=== PATIENT | female | born 1995 | race Asian ===

== ENCOUNTER 2018-03-22 01:04 | Inpatient (IN) | payer BC ==
[2018-03-22] MEDS: NS 0.9% 1000 ML* 2,000 ML IV ONE ×2 (01:20→04:05)
[2018-03-22] MEDS ORDERED: Pantoprazole IV* 40 MG IV ONE (01:45)
--- NOTE | 2018-03-22 01:54 | ED ---
Substance Abuse/Use - HPI Summary HPI Summary: Pt is a 23 year old F presenting to the ED brought in by EMS intoxicated. Pt was found outside vomiting, barely responsive, and breathing very slowly. Pt intubated to expand airway. Full hx and PE is limited due to intoxication. - History Of Current Complaint Chief Complaint: EDSubstanceAbuse Stated Complaint: ETOH UNRESPONSIVE Time Seen by Provider: 03/22/18 01:15 Hx Obtained From: Patient Hx From Patient Unobtainable Due To: Other - intoxication Onset/Duration of Drug/ETOH Abuse: Hours Overdose Characteristics: Oral Timing Of Abuse: Binge Use Severity Initially: Moderate Severity Currently: Moderate Character: Other - asleep Aggravating Factor(s): Nothing Alleviating Factor(s): Nothing Associated Signs And Symptoms: Vomiting, Other: - slow breathing PMH/Surg Hx/FS Hx/Imm Hx Previously Healthy: Yes - unconfirmed due to intoxication Infectious Disease History: Unable to Obtain/Confirm Infectious Disease History: Denies: Traveled Outside the [place] in Last 30 Days - Unknown - Family History Known Family History: Positive: Unknown - cannot confirm due to intoxication Review of Systems Negative: Fever Positive: Shortness Of Breath Positive: Vomiting All Other Systems Reviewed And Are Negative: Yes Physical Exam - Summary Physical Exam Summary: POST-INTUBATION VITAL SIGNS: Reviewed. GENERAL: Patient is a well-developed and nourished female who is lying comfortable in the stretcher. Patient is not in any acute respiratory distress. HEAD AND FACE: No signs of trauma. No ecchymosis, hematomas or skull depressions. No sinus tenderness. EYES: PERRLA, EOMI x 2, No injected conjunctiva, no nystagmus. EARS: Hearing grossly intact. Ear canals and tympanic membranes are within normal limits. MOUTH: Oropharynx within normal limits. NECK: Supple, trachea is midline, no adenopathy, no JVD, no carotid bruit, no c- spine tenderness, neck with full ROM. CHEST: Symmetric, no tenderness at palpation LUNGS: Clear to auscultation bilaterally post-intubation. No wheezing or crackles. CVS: Regular rate and rhythm, S1 and S2 present, no murmurs or gallops appreciated. ABDOMEN: Soft, non-tender. No signs of distention. No rebound no guarding, and no masses palpated. Bowel sounds are normal. EXTREMITIES: FROM in all major joints, no edema, no cyanosis or clubbing. NEURO: Pt is barely responsive. SKIN: Dry and warm Triage Information Reviewed: Yes Vital Signs On Initial Exam: Initial Vitals Temp Pulse Resp BP Pulse Ox 96.5 F 103 8 123/100 98 03/22/18 01:05 03/22/18 01:05 03/22/18 01:05 03/22/18 01:05 03/22/18 01:05 Vital Signs Reviewed: Yes Completion Of Physical Exam Limited Due To: Other - intoxication Procedures - Intubation Time of Intubation: 01:20 Intubation Method: orotracheal Tube Size (cm): 7.0 Medications: Succinylcholine Breath Sounds after Intubation: equal Intubation Complications: no complications Post Intubation Xray: Yes Diagnostics - Vital Signs Vital Signs Temp Pulse Resp BP Pulse Ox 03/22/18 01:05 96.5 F 103 8 123/100 98 - Laboratory Result Diagrams: 03/23/18 05:48 03/23/18 05:48 Lab Statement: Any lab studies that have been ordered have been reviewed, and results considered in the medical decision making process. - Radiology Chest XRay Radiology Interpretation Completed By: ED Physician Summary of Radiographic Findings: No acute infiltrate. Endotracheal tube noted by clavicle. - EKG 0239 Cardiac Rate: NL - 98bpm EKG Rhythm: Sinus Rhythm ST Segment: Normal Ectopy: None Course/Dx - Course Course Of Treatment: Pt is a 23 y/o F presenting to the ED brought in by EMS because she was found outside vomiting due to intoxication. She was unresponsive and not breathing well, she was intubated. Post-intubation, pt is hypothermic. - Diagnoses Provider Diagnoses: Alcohol intoxication, Respiratory failure - Critical Care Time Critical Care Time: 30-74 min - 50min Discharge - Sign-Out/Discharge Documenting (check all that apply): Patient Departure - admit - Discharge Plan Condition: Stable Disposition: ADMITTED TO [facility] - Billing Disposition and Condition Condition: STABLE Disposition: Admitted to [facility] - Attestation Statements Document Initiated by Scribe: Yes Documenting Scribe: Anjali Humphrey Provider For Whom Stephanieibe is Documenting (Include Credential): Luis Jordan MD. Scribe Attestation: Anjali Montes, scribed for Luis Jordan MD. on 04/02/18 at 0614. Scribe Documentation Reviewed: Yes Provider Attestation: The documentation as recorded by the scribe, Anjali Humphrey accurately reflects the service I personally performed and the decisions made by me, Luis Jordan MD. Consult Consult: [phone] - Paged the hospitalist. [phone] - Spoke with hospitalist, pt will be admitted to [facility].
[2018-03-22 02:01] LABS: Hematocrit 39 % (35-47); Hemoglobin 12.5 g/dl (12.0-16.0); Mean Corpuscular HGB Conc 32 g/dl (31-36); Mean Corpuscular Hemoglobin 29 pg (27-31); Mean Corpuscular Volume 89 fL (80-97); Platelet Count 313 10^3/ul (150-450); Red Blood Count 4.39 10^6/ul (4.00-5.40); Red Cell Distribution Width 14 % (10.5-15)
[2018-03-22 02:17] LABS: EGFR Non-African American 90.5 (>60)
[2018-03-22] MEDS ORDERED: fentaNYL* 50 MCG/ML 2 ML VIAL (100 MCG VIAL) ONE (02:17)
[2018-03-22] MEDS ORDERED: Midazolam concentrated* 5 MG/ML 1 ml VIAL ONE (02:17)
[2018-03-22] MEDS ORDERED: fentaNYL* 50 MCG/ML 2 ML VIAL (100 MCG VIAL) IV SLOW PU ONE (02:27)
[2018-03-22] MEDS ORDERED: Midazolam concentrated* 5 MG/ML 1 ml VIAL IV ONE (02:27)
[2018-03-22] MEDS ORDERED: KCL 10 MEQ/50 ML IVPREMIX* 10 MEQ/50 ML BAG IV ONE (02:34)
[2018-03-22] MEDS ORDERED: Propofol* 100 ML ONE (02:54)
[2018-03-22 02:55] LABS: ABS Basophils 0 10^3/ul (0-0.2); ABS Eosinophils 0.1 10^3/ul (0-0.6); ABS Lymphocytes 5.6 10^3/ul (1.0-4.8); ABS Monocytes 0.5 10^3/ul (0-0.8); ABS Neutrophils 7.6 10^3/ul (1.5-7.7); ABS Nucleated RBC 0 10^3/ul; Eosinophil % 0.8 % (0-6); Lymphocyte % 40.4 % (25-47); Nucleated Red Blood Cells % 0.1
[2018-03-22] MEDS ORDERED: Propofol* 500 MG/50 ML BTL IV SCH (03:00)
[2018-03-22 03:09] LABS: Urine Appearance Clear; Urine Blood 1+ (Negative); Urine Color Straw; Urine Ketones Trace (Negative); Urine Protein Negative (Negative); Urine Red Blood Cell Trace(0-2/hpf) (Absent); Urine Specific Gravity 1.013 (1.010-1.030); Urine Urobilinogen Negative (Negative); Urine White Blood Cell Absent (Absent)
[2018-03-22] MEDS ORDERED: ZOSYN 3.375 GM x ONE DOSE over 30 miuntes IVPB ×2 (04:00)
[2018-03-22] MEDS ORDERED: Thiamine IV 100 MG/ML VIAL (only for Bannana Bags !) IVPB SCH (04:00)
[2018-03-22 06:06] LABS: ABS Basophils 0 10^3/ul (0-0.2); ABS Eosinophils 0 10^3/ul (0-0.6); ABS Lymphocytes 3.1 10^3/ul (1.0-4.8); ABS Monocytes 0.5 10^3/ul (0-0.8); ABS Neutrophils 9.2 10^3/ul (1.5-7.7); ABS Nucleated RBC 0 10^3/ul; Eosinophil % 0 % (0-6); Hematocrit 34 % (35-47); Hemoglobin 11.2 g/dl (12.0-16.0); Lymphocyte % 23.9 % (25-47); Mean Corpuscular HGB Conc 33 g/dl (31-36); Mean Corpuscular Hemoglobin 29 pg (27-31); Mean Corpuscular Volume 87 fL (80-97); Nucleated Red Blood Cells % 0.1; Platelet Count 262 10^3/ul (150-450); Red Blood Count 3.88 10^6/ul (4.00-5.40); Red Cell Distribution Width 14 % (10.5-15); White Blood Count 12.8 10^3/ul (3.5-10.8)
[2018-03-22 06:35] LABS: EGFR Non-African American 123.8 (>60)
[2018-03-22] MEDS ORDERED: Succinylcholine* 20 MG/ML 10 ML VIAL ONE (08:00)
[2018-03-22] MEDS ORDERED: Etomidate* 2 MG/ML 20 ML VIAL (40 MG) ONE (08:00)
--- NOTE | 2018-03-22 08:02 | ADMNOTE ---
Subjective Date of Service: 03/22/18 Interval History: code status full this is an h/p for admission hpi this is a 23 yr old [employer] student who [place]. pt was found almost apenic with core body temp 32-34 degree. her etoh level was 299 but the rest of urine toxin were neg. pt was intubated for airwary protection. her core body temp went upwards with bear hugger. intial wbc 14 with lactic acid 3.5 ---> fajardo cx done and one dose of zosyn started. pt was initially sedated with propophel ---> she has gradually regained her consciousness back and was extubated for comfort close to around 53oam. pt was still be admitted to icu for observation but may be downgraded if her clinically vitals still is stable. pt was not sure what was going on during the libertarian and afterwards. her parents are called by er and are coming from [facility] this afternoon. phx none pshx none social no cig no etoh currently is a [employer] student fhx denied Review of Systems - Measurements Intake and Output: Intake and Output Last 24 Hours 03/20/18 03/21/18 03/22/18 03/23/18 06:59 06:59 06:59 06:59 Output Total 1000 Balance -1000 Weight 122 lb 12.76 oz Output: Mar 1000 - Review of Systems General Comments: s/p intubation for airway protection after extubation says her throat hurts but otherwise no other new c/o Objective Active Medications: Propofol (Diprivan*) 500 mg in 50 mls @ 5.987 mls/hr IV .(Initial Rate) [facility] Last Admin: 03/22/18 03:59 Dose: 5.987 mls/hr Piperacillin Sod/Tazobactam (Sod 3.375 gm/ Sodium Chloride) 100 mls @ 25 mls/ hr IVPB Q8H [facility] Thiamine HCl (Vitamin B1 Iv) 1 mg IVPB Q24H [facility] Vital Signs - 8 hr 03/22/18 03/22/18 03/22/18 01:05 01:08 01:10 Temperature 96.5 F Pulse Rate 103 73 Respiratory 8 14 20 Rate Blood Pressure 123/100 123/100 (mmHg) O2 Sat by Pulse 98 98 Oximetry 03/22/18 03/22/18 03/22/18 01:39 02:00 02:09 Temperature 93.9 F 94.8 F 95.2 F Pulse Rate 115 111 118 Respiratory Rate Blood Pressure 119/72 107/76 (mmHg) O2 Sat by Pulse 100 100 100 Oximetry 03/22/18 03/22/18 03/22/18 02:28 02:41 02:51 Temperature 95.4 F 95.7 F Pulse Rate 100 97 Respiratory 31 Rate Blood Pressure 134/87 132/85 (mmHg) O2 Sat by Pulse 100 100 Oximetry 03/22/18 03/22/18 03/22/18 03:00 03:06 03:21 Temperature 95.9 F 96.1 F 96.4 F Pulse Rate 97 98 101 Respiratory Rate Blood Pressure 135/93 134/100 (mmHg) O2 Sat by Pulse 100 100 100 Oximetry 03/22/18 03/22/18 03/22/18 03:28 03:36 04:00 Temperature 96.6 F 96.8 F 97.0 F Pulse Rate 103 120 136 Respiratory Rate Blood Pressure 137/96 135/82 (mmHg) O2 Sat by Pulse 100 100 100 Oximetry 03/22/18 03/22/18 03/22/18 04:06 04:21 04:36 Temperature 97.0 F 97.3 F 97.7 F Pulse Rate 134 115 128 Respiratory Rate Blood Pressure 104/61 125/83 120/74 (mmHg) O2 Sat by Pulse 100 100 99 Oximetry 03/22/18 03/22/18 03/22/18 04:51 05:00 05:06 Temperature 97.9 F 98.1 F 98.1 F Pulse Rate 129 138 155 Respiratory Rate Blood Pressure 115/72 103/65 (mmHg) O2 Sat by Pulse 99 99 100 Oximetry 03/22/18 03/22/18 03/22/18 05:21 05:30 05:56 Temperature 98.1 F 98.1 F 99.4 F Pulse Rate 145 156 117 Respiratory 19 19 Rate Blood Pressure 108/71 103/65 97/67 (mmHg) O2 Sat by Pulse 100 100 100 Oximetry 03/22/18 03/22/18 03/22/18 05:58 06:00 06:01 Temperature 98.4 F 98.4 F 98.4 F Pulse Rate 129 147 134 Respiratory 20 16 14 Rate Blood Pressure 97/67 116/88 (mmHg) O2 Sat by Pulse 100 99 99 Oximetry 03/22/18 03/22/18 03/22/18 06:15 06:30 07:00 Temperature 98.6 F 98.6 F Pulse Rate 114 115 116 Respiratory 14 21 30 Rate Blood Pressure 102/68 103/72 112/72 (mmHg) O2 Sat by Pulse 100 100 100 Oximetry 03/22/18 07:43 Temperature 99.6 F Pulse Rate Respiratory Rate Blood Pressure (mmHg) O2 Sat by Pulse Oximetry Oxygen Devices in Use Now: None Appearance: nad Eyes: No Scleral Icterus, PERRLA Ears/Nose/Mouth/Throat: NL Teeth, Lips, Gums, Clear Oropharnyx, Mucous Membranes Moist, - Neck: NL Appearance and Movements; NL JVP, Trachea Midline, No Thyroid Enlargement, Masses Respiratory: Symmetrical Chest Expansion and Respiratory Effort, Clear to Auscultation Cardiovascular: NL Sounds; No Murmurs; No JVD, RRR, No Edema Abdominal: NL Sounds; No Tenderness; No Distention Extremities: No Edema, - Skin: No Rash or Ulcers Neurological: Alert and Oriented x 3, - - after extubation aao times three no focal neuro deficits Result Diagrams: 03/22/18 05:55 03/22/18 05:55 Microbiology and Other Data: Microbiology 03/22/18 06:11 Nasal Screen MRSA (PCR) - Final Nasal Mrsa Not Detected EKG Data: ns no acute st t changes Assess/Plan/Problems-Billing Assessment: this is a 23 yr old female with no sig hx was found by police drunk etoh 299 urine toxin was neg pt was intubated for airway protection due to apenic she was hypothermia to body temp 32 ---> intial wbc 14.6 lactic acid 3.5 got fajardo cx and one dose of zosyn given. she was later successfully extubated close to 530 am - Patient Problems (1) Hypothermia Current Visit: Yes Status: Acute Code(s): T68.XXXA - HYPOTHERMIA, INITIAL ENCOUNTER SNOMED Code(s): 400592245 Comment: this is due to she was out in close to freezing temp in cold temp drunk pt responded to bear hugger well continue current hospital protocol while on bear hugger (2) Apnea Current Visit: Yes Status: Acute Code(s): R06.81 - APNEA, NOT ELSEWHERE CLASSIFIED SNOMED Code(s): 1894540 Comment: almost apenic s/p intubation for airway protection on arrival ---> s /p extubation close around 530 am. seems to tolerate it well will conitnue current mgt (3) Accidental ETOH poisoning Current Visit: Yes Status: Acute Code(s): T51.0X1A - TOXIC EFFECT OF ETHANOL , ACCIDENTAL (UNINTENTIONAL), INIT SNOMED Code(s): 766587047 Comment: etoh level on admission close to 300 denied any chronic etoh dep will moniter no benzo ordered since she does not have a hx etoh dep hx (4) SIRS (systemic inflammatory response syndrome) Current Visit: Yes Status: Acute Code(s): R65.10 - SIRS OF NON-INFECTIOUS ORIGIN W/O ACUTE ORGAN DYSFUNCTION SNOMED Code(s): 185439623 Comment: fajardo cx done will just cover with one dose of zosyn from now while waiting for blood culture result moniter cbc and lactic trend ivf
[2018-03-22] MEDS ORDERED: Calcium Gluconate INJ* 4 GM in NS 0.9% 250 ML* 250 ML IVPB ONE (09:30)
[2018-03-22] MEDS: Thiamine IV* 100 MG in NS 0.9% 50 ML* 50 ML IV SCH (09:47)
[2018-03-22] MEDS ORDERED: Piperacillin/Tazobac ADVAN(*) 3.375 GM in NS 0.9% 100 ML* 100 ML IVPB SCH (10:00)
[2018-03-22] MEDS ORDERED: NS 0.9% 1000 ML* 1,000 ML IV SCH (11:30)
[2018-03-22] MEDS: Enoxaparin(*) 40 MG/0.4 ML SYR SUBCUT SCH (15:10)
--- NOTE | 2018-03-22 16:23 | PN ---
Subjective Date of Service: 03/22/18 Interval History: Pt seen and examined. Meds and labs reviewed. CC: Numbness of LUE an LLE, resolved on re-eval. Likely due to positioning ROS: Denied PARKS/dizziness, F/C, N/V, CP, SOB, increased cough, sputum production , abd pain, diarrhea, constipation, dysuria, myalgias, arthralgias, throat pain , and new skin lesions. The rest of the 14 point ROS are unremarkable. PHYSICAL EXAM: GEN APPEARANCE: Awake, not in acute distress HEENT: NC/AT, PERRLA, moist oral mucosa, (-) throat erythema NECK: Soft, supple, (-) cervical LAD, (-)JVD HEART: S1S2 WNL, RRR, No MRG CHEST: CTA, BL, GAE, No W/R/R ABD: Soft, ND/NT, NABS 4x Q EXT: No C/C/E SKIN: Warm to touch PSYCH: No active psychosis, hallucinations, depression, SI/HI Objective Active Medications: Enoxaparin Sodium (Lovenox(*)) 40 mg SUBCUT Q24H [facility] Last Admin: 03/22/18 15:10 Dose: 40 mg Thiamine HCl 100 mg/ Sodium (Chloride) 51 mls @ 204 mls/hr IV Q24H [facility] Last Admin: 03/22/18 09:47 Dose: 204 mls/hr Sodium Chloride (Ns 0.9% 1000 Ml*) 1,000 mls @ 150 mls/hr IV PER RATE [facility] Stop: 03/23/18 18:09 Vital Signs - 8 hr 03/22/18 03/22/18 03/22/18 08:30 08:45 09:00 Temperature Pulse Rate 120 122 122 Respiratory 17 17 18 Rate Blood Pressure 87/41 107/46 93/57 (mmHg) O2 Sat by Pulse 98 97 97 Oximetry 03/22/18 03/22/18 03/22/18 09:01 09:15 09:30 Temperature Pulse Rate 125 122 121 Respiratory 26 20 19 Rate Blood Pressure 89/39 89/38 (mmHg) O2 Sat by Pulse 97 98 98 Oximetry 03/22/18 03/22/18 03/22/18 09:45 10:00 10:01 Temperature Pulse Rate 120 117 123 Respiratory 18 22 18 Rate Blood Pressure 101/39 83/38 (mmHg) O2 Sat by Pulse 97 97 96 Oximetry 03/22/18 03/22/18 03/22/18 10:15 10:30 10:45 Temperature Pulse Rate 119 123 119 Respiratory 19 18 17 Rate Blood Pressure 90/40 90/39 88/37 (mmHg) O2 Sat by Pulse 97 98 97 Oximetry 03/22/18 03/22/18 03/22/18 11:00 11:01 11:15 Temperature Pulse Rate 122 122 122 Respiratory 20 18 21 Rate Blood Pressure 86/42 109/51 (mmHg) O2 Sat by Pulse 97 96 97 Oximetry 03/22/18 03/22/18 03/22/18 11:30 11:45 11:52 Temperature 98.7 F Pulse Rate 110 109 Respiratory 18 19 Rate Blood Pressure 90/43 90/49 (mmHg) O2 Sat by Pulse 96 98 Oximetry 03/22/18 03/22/18 03/22/18 12:00 12:01 12:15 Temperature Pulse Rate 101 104 106 Respiratory 16 17 18 Rate Blood Pressure 96/56 91/48 (mmHg) O2 Sat by Pulse 96 96 96 Oximetry 03/22/18 03/22/18 03/22/18 12:31 12:45 13:00 Temperature Pulse Rate 105 120 108 Respiratory 11 15 18 Rate Blood Pressure 91/65 103/73 114/73 (mmHg) O2 Sat by Pulse 97 99 98 Oximetry 03/22/18 03/22/18 03/22/18 13:01 13:16 13:30 Temperature Pulse Rate 105 101 105 Respiratory 17 16 21 Rate Blood Pressure 97/52 120/81 (mmHg) O2 Sat by Pulse 99 98 98 Oximetry 03/22/18 03/22/18 03/22/18 13:45 14:00 14:01 Temperature Pulse Rate 94 104 108 Respiratory 13 18 12 Rate Blood Pressure 108/69 119/73 (mmHg) O2 Sat by Pulse 99 98 98 Oximetry 03/22/18 03/22/18 03/22/18 14:15 14:31 14:45 Temperature Pulse Rate 100 83 73 Respiratory 23 17 17 Rate Blood Pressure 125/86 96/59 102/79 (mmHg) O2 Sat by Pulse 98 97 99 Oximetry 03/22/18 16:06 Temperature 98 F Pulse Rate 62 Respiratory 16 Rate Blood Pressure 118/66 (mmHg) O2 Sat by Pulse 100 Oximetry Oxygen Devices in Use Now: None Result Diagrams: 03/22/18 05:55 03/22/18 05:55 Microbiology and Other Data: Microbiology 03/22/18 06:11 Nasal Screen MRSA (PCR) - Final Nasal Mrsa Not Detected EKG Data: ns no acute st t changes Assess/Plan/Problems-Billing Assessment: this is a 23 yr old female with no sig hx was found by police drunk etoh 299 urine toxin was neg pt was intubated for airway protection due to apenic she was hypothermia to body temp 32 ---> intial wbc 14.6 lactic acid 3.5 got fajardo cx and one dose of zosyn given. she was later successfully extubated close to 530 am - Patient Problems (1) Alcohol intoxication Current Visit: Yes Status: Acute Comment: -Likely cause of hypothermia and lactic acidosis due to peripheral vasodilation during the cold weather causing tachycardia, especially in setting of vomiting and poor PO intake of water during ETOH binge -Intubated briefly for airway protection, was extubated a few hours later -Advised lifestyle modifications (2) Lactic acidosis Current Visit: Yes Status: Acute Code(s): E87.2 - ACIDOSIS SNOMED Code(s) : 98744218 Comment: -Increase IVFs -Please see above discussion -Will repeat LA level at 1600 -Continue watchful waiting (3) DVT prophylaxis Current Visit: Yes Status: Acute Code(s): [id number] - SNOMED Code(s): 104779656 Comment: -Will place on Lovenox 40 mgS Status and Disposition: -For possible D/C in AM
[2018-03-23 06:00] LABS: Hematocrit 34 % (35-47); Hemoglobin 11.2 g/dl (12.0-16.0); Mean Corpuscular HGB Conc 34 g/dl (31-36); Mean Corpuscular Hemoglobin 29 pg (27-31); Mean Corpuscular Volume 87 fL (80-97); Mean Platelet Volume 7.1 fL (7.4-10.4); Platelet Count 217 10^3/ul (150-450); Red Blood Count 3.86 10^6/ul (4.00-5.40); Red Cell Distribution Width 14 % (10.5-15); White Blood Count 7.6 10^3/ul (3.5-10.8)
[2018-03-23 06:24] LABS: EGFR Non-African American 99.1 (>60)
[2018-03-23] MEDS ORDERED: Potassium Chlor TAB* 20 MEQ TAB.ER PO STA (08:14)
[2018-03-23] MEDS ORDERED: Magnesium Sulfate 2 GM IV* 2 GM/50 ML BAG IVPB ONE (08:14)
[2018-03-23] MEDS: Enoxaparin(*) 40 MG/0.4 ML SYR SUBCUT SCH (09:34)
[2018-03-23] MEDS: Thiamine IV* 100 MG in NS 0.9% 50 ML* 50 ML IV SCH (11:21)
[2018-03-23 12:26] VITALS: BP 110/70
--- NOTE | 2018-03-23 13:09 | PN ---
School Excuse - School Note School Note: March 23, 2018 This is to confirm that Ms. Wong has been admitted for observation in our facility on 03/22/18 and has been discharged today (03/23/18). 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 Please call my office for any questions or concerns. Due to HIPPA, we cannot provide any specifics regarding the details of her hospitalization unless a written and signed consent from Ms. Wong is made available for our records. Sincerely, Guzman Manning M.D. 03/23/18 Guzman Manning MD Date
--- NOTE | 2018-03-24 02:41 | DS ---
cC: Dr. Jessica Ansari; Dr. Don Jordan * DISCHARGE SUMMARY: DATE OF ADMISSION: 03/22/18 DATE OF DISCHARGE: 03/23/18 DISCHARGE DIAGNOSES: Are as follows: 1. Acute alcohol intoxication, resolved. 2. Lactic acidosis, hypothermia, and nausea and vomiting secondary to above, resolved. DISCHARGE MEDICATIONS: Multivitamins one tab p.o. daily for 14 days. HISTORY OF PRESENT ILLNESS/HOSPITAL COURSE: The patient is a 23-year-old - [place] lady, a student of [employer], who was brought by police at the station, confused and per the patient and her friends at bedside mentioned that she was with someone and with her friends during the entire episode and when police arrived, she was found almost apneic with a core body temperature of 32 to 34 degrees. Her alcohol level on presentation in the ED was found to be elevated at 299; however, the rest of her urine drug screen was found to be negative. She was initially intubated for airway protection given her nausea and vomiting as well as her lethargy, but was then subsequently extubated a few hours later. Her lactic acid elevation has normalized prior to her discharge as well as her nausea and vomiting as well as her hypothermia, which is likely due to the peripheral vasodilation in the cold weather that induced further hypothermia and subsequently led to a small drop in her blood pressure and together with acute neurologic effects of alcohol made her more confused leading to her subsequent admission for observation. She had been advised to follow up and/or call her PCP within 3 days post discharge and she was advised to refrain from an alcohol binge especially during cold weather. If she is to drink, she had been advised to drink responsibly and sparingly as alcohol can be addictive as well can acutely affect the functions of her liver and other systems. If her symptoms resume or develop new ones or feel unwell for any reason, she was advised to first call her PCP and if her PCP cannot entertain her due to scheduling issues alone, to call [facility] if the issue is considered nonemergent. She was advised to call my office regarding any questions, concerns, and further clarifications regarding her discharge plans and/or prescriptions and to take her medications as prescribed. 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 REVIEW OF SYSTEMS: The patient denied any current headaches, dizziness, fevers , chills, nausea, vomiting, chest pain, shortness of breath, increased cough and /or sputum production, abdominal pain, diarrhea, constipation, pain and/or increased frequency on urination, myalgias, arthralgias, throat pain, or new skin lesions. The rest of the 14-point review of systems were otherwise unremarkable. PHYSICAL EXAMINATION: Reveals a most recent vital signs of records with blood pressure of 110/70, 98.4 degrees Fahrenheit, 68 beats per minute heart rate, 18 per minute respiratory rate, saturating at 100% on room air. General Appearance : The patient is awake, alert, and oriented x3, not in acute distress. HEENT: Normocephalic, atraumatic. PERRLA. Extraocular muscles intact. Negative for icterus. Moist oral mucosa. Negative throat erythema. Neck is soft, supple, with no cervical lymphadenopathy. No JVD. Heart: S1, S2 within normal limits. Regular rate and rhythm. No murmurs, rubs, and gallops. Chest: Clear to auscultation bilaterally. Good air entry. No, wheezes, rales, or rhonchi. Abdomen is soft, nondistended, nontender. Normoactive bowel sounds 4x quadrants. Extremities: No cyanosis, clubbing, or edema. Psychiatric: No active psychosis, depression, suicidal or homicidal ideations. Skin is warm to touch. TIME SPENT: The total time spent evaluating the patient, reviewing pertinent data and appropriate documentation is 40 minutes. [id number]/[facility] #: [id number] [place]
== END 2018-03-23 13:20 | disposition home or self-care (01) | DRG 775 ==
LOC: ED 01:04 → ICU 03:15 → MED 16:03
PROVIDERS: ADMIT Internal Medicine; ATTEND Student in an Organized Health Care Education/Training Program
PROC: 5A1935Z Respiratory Ventilation, Less than 24 Consecutive Hours (ICD-10-PCS; principal; 2018-03-22)
PROC: 0BH17EZ Insertion of Endotracheal Airway into Trachea, Via Natural or Artificial Opening (ICD-10-PCS; 2018-03-22)
DX: F10.129 Alcohol abuse with intoxication, unspecified (principal); E87.2 Acidosis; R65.10 Systemic inflammatory response syndrome (SIRS) of non-infectious origin without acute organ dysfunction; Y90.8 Blood alcohol level of 240 mg/100 ml or more; T68.XXXA Hypothermia, initial encounter; X58.XXXA Exposure to other specified factors, initial encounter; R11.2 Nausea with vomiting, unspecified; R06.81 Apnea, not elsewhere classified
CPT/HCPCS: 36415; 71045; 80053; 80307; 80320; 81003; 81015; 82550; 82803; 83605; 83735; 84100; 84484; 84702; 85025; 85027; 85060; 87040; 87641; 93005; 99285; A9270-GY; G0480; J0330; J0610; J1650; J2250; J2543; J2704; J3010; J3411; J3475; J3480

== ENCOUNTER 2018-03-24 11:17 | Emergency (ER) | payer BC ==
[2018-03-24 11:49] VITALS: BP 103/66
--- NOTE | 2018-03-24 11:52 | UC ---
Abdominal Pain Female HPI - HPI Summary HPI Summary: 23 yo female presents s/p recent hospitalization. She tells me that on 03/22 she was found unresponsive and intoxicated. She was admitted to the hospital with etoh intoxication and lactic acidosis. She was discharged yesterday and given a note to return to classes today. She tells me that last night she was feeling well, but this morning woke up to try to go to class and felt very fatigued with dizziness. She did not feel she could go to class - prompting her visit to the . She denies headache, SOB, chest pain, abdominal pain, n/v/d/c, dysuria, or pain. - History of Current Complaint Chief Complaint: UCGeneralIllness Stated Complaint: FOLLOW UP Time Seen by Provider: 03/24/18 11:51 Hx Obtained From: Patient Hx Last Menstrual Period: 03/04/18 Onset/Duration: Sudden Onset Severity Currently: None Pain Intensity: 0 Allergies/Adverse Reactions: Allergies Allergy/AdvReac Type Severity Reaction Status Date / Time No Known Allergies Allergy Verified 03/24/18 11:42 Home Medications: Home Medications Etonogest/Eth.estradiol (Nf) [Nuvaring Vaginal Ring] 1 each VAGINAL .SEE COMMENTS 03/24/18 [History Confirmed 03/24/18] PMH/Surg Hx/FS Hx/Imm Hx - Additional Past Medical History Additional PMH: None - Surgical History Surgical History: Yes Surgery Procedure, Year, and Place: R forearm repair as a child - Family History Known Family History: Positive: None - Social History Occupation: Student Lives: Dormitory/Roommates Alcohol Use: Occasionally Substance Use Type: None Substance Use Comment - Amount & Last Used: unknown Smoking Status (MU): Never Smoked Tobacco - Immunization History Most Recent Influenza Vaccination: 2018 Most Recent Pneumonia Vaccination: never Review of Systems All Other Systems Reviewed And Are Negative: Yes Constitutional: Positive: Fatigue Skin: Positive: Negative Eyes: Positive: Negative ENT: Positive: Negative Respiratory: Positive: Negative Cardiovascular: Positive: Negative Gastrointestinal: Positive: Negative Genitourinary: Positive: Negative Motor: Positive: Negative Neurovascular: Positive: Negative Musculoskeletal: Positive: Negative Neurological: Positive: Other - Dizziness Psychological: Positive: Negative Physical Exam - Summary Physical Exam Summary: GENERAL: NAD. WDWN. No pain distress. SKIN: No rashes, sores, ulcers, masses, lesions. HEENT: Head: AT/NC. No raccoon eyes or fajardo's sign. Eyes: PERRLA. EOM intact. Conjunctiva clear without inflammation or discharge. Ears: Hearing grossly normal. TMs intact, no bulging, erythema, or edema. Nose: Nasal mucosa pink and moist. NTTP maxillary and frontal sinus. Throat: Posterior oropharynx without exudates, erythema, or tonsillar enlargement. Uvula midline. NECK: Supple. Nontender. No lymphadenopathy. CHEST: CTAB. No r/r/w. No accessory muscle use. Breathing comfortably and in no distress. CV: RRR. Without m/r/g. Pulses intact. Brisk cap refill. ABDOMEN: Soft. NTTP. No distention or guarding. No CVA tenderness. Bowel sounds present MSK: FROM in B/L UEs and LEs with symmetric strength. NEURO: A&Ox3. 3 word recall, remote, recent memory, ability to follow 2-step directions, and attention intact. CN: II: Peripheral love intact. Vision normal. III, IV, : EOMI. No nystagmus. PERRLA. V: Sensations intact and symmetric. Opens mouth and clenches teeth. VII: No facial asymmetry. Forehead wrinkles. Grins, shuts eyes, frowns, puffs cheeks. VIII: Hearing intact to finger rub. IX, X: Swallows and coughs. Uvula midline. XI: Shrugs shoulders. Turns head against resistance. XII: No tongue deviation Qwdioa-ao-[id number] are intact. Gait with normal base. Romberg: maintains balance, no pronator drift. Normal speech. No facial drooping. PSYCH: Age appropriate behavior. Triage Information Reviewed: Yes Vital Signs: Initial Vital Signs Temp 97 F 03/24/18 11:43 Pulse 76 03/24/18 11:43 Resp 18 03/24/18 11:43 BP 103/66 03/24/18 11:43 Pulse Ox 100 03/24/18 11:43 Vital Signs Reviewed: Yes Abd Pain Female Course/Dx - Course Course Of Treatment: Does not appear a head CT was performed during her hospital stay - therefore one was performed today. CT: IMPRESSION: NO ACUTE INTRACRANIAL PATHOLOGY. POC glucose: 92. EKG: NSR 62bpm. No ST changes or NE changes as read by Dr. Garnett. Pt was offered IV fluids, but declined. Discussed obtaining CBC, CMP, and mag today to check on her electrolyte status, but pt declined as she has had a lot of IVs recently and her arms are bruised and sore. I strongly advised her to f/u with [facility] if her symptoms do not improve over the next 1-2 days. Will dc with a prescription for zofran as she is mildly nauseous. Pt voiced understanding and is agreeable with plan. - Differential Dx/Diagnosis Provider Diagnoses: Dizziness. Nausea. ETOH abuse Discharge - Sign-Out/Discharge Documenting (check all that apply): Patient Departure All imaging exams completed and their final reports reviewed: Yes - Discharge Plan Condition: Stable Disposition: HOME Prescriptions: Ondansetron ODT TAB* [Zofran 4 MG Odt TAB*] 4 mg PO Q8H PRN #12 tab.odt PRN Reason: Nausea Patient Education Materials: Alcohol Intoxication (ED), Dizziness (ED) Forms: *School Release Referrals: [facility] [Primary Care Provider] - Additional Instructions: If you develop a fever, shortness of breath, chest pain, new or worsening symptoms - please call your PCP or go to the ED. - Billing Disposition and Condition Condition: STABLE Disposition: Home
== END 2018-03-24 12:55 | disposition home or self-care (01) ==
LOC: UCEAST 11:17
DX: R42 Dizziness and giddiness (principal); R11.0 Nausea; F10.10 Alcohol abuse, uncomplicated
CPT/HCPCS: 70450; 93005; 99212; G0463